=== PATIENT | male | born 1995 | race Caucasian/White ===

== ENCOUNTER 2019-12-22 20:59 | Emergency (ER) | payer SELFPAY ==
[~2019-12-22] VITALS: Ht 193 cm; Wt 80.6 kg
[2019-12-22 21:19] VITALS: BP 134/68
[2019-12-22] MEDS ORDERED: LIDOCAINE 1%, 10ML INFIL ONE (21:30)
[2019-12-22] MEDS ORDERED: DIPH,PERTUSS(ACELL),TET VAC/PF 0.5 ML IM-VACC ONE (21:30)
--- NOTE | 2019-12-22 22:37 | NUR ---
[id number]
--- NOTE | 2019-12-22 23:00 | NUR ---
[id number]
--- NOTE | 2019-12-22 23:01 | NUR ---
[id number]
== END 2019-12-22 22:30 | disposition left against medical advice (07) ==
LOC: ED 22:30
DX: S01.81XA Laceration without foreign body of other part of head, initial encounter (principal); X58.XXXA Exposure to other specified factors, initial encounter; Y93.89 Activity, other specified; Y92.89 Other specified places as the place of occurrence of the external cause; Y99.8 Other external cause status
CPT/HCPCS: 99281